=== PATIENT | female | born 1970 | race Caucasian/White ===

== ENCOUNTER → 2020-10-08 13:14 | Outpatient (BNVA) | payer OTHER, SELFPAY | PROVIDERS: Family Provider Family Medicine; PCP Family Medicine; Visit Provider Nurse Practitioner Family | DX: Z20.828 Contact with and (suspected) exposure to other viral communicable diseases (principal) | CPT/HCPCS: 87635 ==

== ENCOUNTER → 2020-10-25 13:45 | Outpatient (BNVA) | payer OTHER, SELFPAY | PROVIDERS: Family Provider Family Medicine; PCP Family Medicine; Visit Provider Nurse Practitioner Family | DX: J06.9 Acute upper respiratory infection, unspecified (principal) | CPT/HCPCS: 87635 ==

== ENCOUNTER 2021-04-15 01:15 | Emergency (ER) | payer OTHER, SELFPAY ==
[2021-04-15 01:54] VITALS: BP 124/83; PULSE 77; RESP 18; TEMP 36.7; O2SAT 96; BMI 20.1
--- NOTE | 2021-04-15 02:58 | CTR_ITS ---
PROCEDURE INFORMATION: Exam: CT Angiography Head With Contrast, Arteriography Exam date and time: 04/15/2021 2:58 AM Age: 50 years old Clinical indication: Pain; Headache; Additional info: Severe neck pain/arrington TECHNIQUE: Imaging protocol: Computed tomography angiography of the head with contrast. Exam focused on the arteries. 3D rendering (Not supervised by radiologist): MIP and/or 3D reconstructed images were created by the technologist. Radiation optimization: All CT scans at this facility use at least one of these dose optimization techniques: automated exposure control; mA and/or kV adjustment per patient size (includes targeted exams where dose is matched to clinical indication); or iterative reconstruction. Contrast material: OMNI 350; Contrast volume: 95 ml; Contrast route: INTRAVENOUS (IV); COMPARISON: No relevant prior studies available. RADIATION DOSE METRICS: Total DLP (mGy-cm): 1714.05 FINDINGS: ANTERIOR CIRCULATION: Right internal carotid artery: Unremarkable. Intracranial segment is patent with no significant stenosis. No aneurysm. Right middle cerebral artery: Unremarkable. No occlusion or significant stenosis. No aneurysm. Right anterior cerebral artery: Unremarkable. No occlusion or significant stenosis. No aneurysm. Left internal carotid artery: Unremarkable. Intracranial segment is patent with no significant stenosis. No aneurysm. Left middle cerebral artery: Unremarkable. No occlusion or significant stenosis. No aneurysm. Left anterior cerebral artery: Unremarkable. No occlusion or significant stenosis. No aneurysm. POSTERIOR CIRCULATION: Right vertebral artery: Unremarkable. No occlusion or significant stenosis. No aneurysm. Left vertebral artery: Unremarkable. No occlusion or significant stenosis. No aneurysm. Basilar artery: Unremarkable. No occlusion or significant stenosis. No aneurysm. Right posterior cerebral artery: Unremarkable. No occlusion or significant stenosis. No aneurysm. Left posterior cerebral artery: Unremarkable. No occlusion or significant stenosis. No aneurysm. Brain: No definite mass, mass effect, or midline shift. Cerebral ventricles: No ventriculomegaly. Bones/joints: Unremarkable. No acute fracture. Soft tissues: Unremarkable. IMPRESSION: No large vessel stenosis or occlusion. PROCEDURE INFORMATION: Exam: CT Angiography Neck With Contrast Exam date and time: 04/15/2021 2:58 AM Age: 50 years old Clinical indication: Pain; Headache; Additional info: Severe neck pain/arrington TECHNIQUE: Imaging protocol: Computed tomography angiography of the neck with contrast. 3D rendering (Not supervised by radiologist): MIP and/or 3D reconstructed images were created by the technologist. Radiation optimization: All CT scans at this facility use at least one of these dose optimization techniques: automated exposure control; mA and/or kV adjustment per patient size (includes targeted exams where dose is matched to clinical indication); or iterative reconstruction. Contrast material: OMNI 350; Contrast volume: 95 ml; Contrast route: INTRAVENOUS (IV); COMPARISON: No relevant prior studies available. RADIATION DOSE METRICS: Total DLP (mGy-cm): 1714.05 FINDINGS: Right common carotid artery: No stenosis. No dissection or occlusion. Right internal carotid artery: No stenosis of the extracranial segment. No dissection or occlusion. Right external carotid artery: No occlusion or stenosis of the origin. Left common carotid artery: No stenosis. No dissection or occlusion. Left internal carotid artery: No stenosis of the extracranial segment. No dissection or occlusion. Left external carotid artery: No occlusion or stenosis of the origin. Right vertebral artery: No stenosis. No dissection or occlusion. Left vertebral artery: No stenosis. No dissection or occlusion. Soft tissues: Normal. No significant soft tissue swelling. Bones/joints: No acute fracture. CT/CT angio headneck* [id number] IMPRESSION: No stenosis or occlusion. REFERENCES: NASCET CRITERIA. The degree of internal carotid artery stenosis is based on NASCET criteria. Normal is no stenosis. Mild is less than 50% stenosis. Moderate is 50-69% stenosis. Severe is 70% to 99% stenosis. Total occlusion is no detectable patent lumen. Radiation Dose CTDIVOL = (mGy): DLP = 1714.05~1714.05 (mGy-cm)
--- NOTE | 2021-04-15 02:59 | W.ED.NECK ---
Documented by User: ADRIANA David 04/16/21 07:09 HPI - Neck Pain/Injury General: Chief Complaint: Neck Pain/Injury Stated Complaint: Spine hurt\Headache Time Seen by Provider: 04/15/21 02:28 Source: patient Mode of arrival: ambulatory Limitations: no limitations History of Present Illness: HPI Narrative: Patient is a 50-year-old female who presents to ED today with a complaint of headache and neck pain. Patient tells me earlier today she was cleaning and states she rotated her head/neck to the right and immediately felt a warm sensation to her neck and traveling up into her head. She then tells me she began developing a severe headache. Patient does have a history of migraines but states her headache did not feel like anything she has ever experienced before. She describes the sensation like a vice microstrategy reports developer to the posterior aspect of her scalp. She tells me she has 10/10 pain with coughing, sneezing, or bending over. MD complaint: neck pain and other (headache) Onset (ago): hour(s) Place: home Severity: severe Quality: burning Duration: constant Relieving factors: immobilization Exacerbating factors: movement of neck Context: turning/bending Associated symptoms: Reports headache(s); Denies difficulty walking, dizziness or nausea Treatments prior to arrival: none Review of Systems Const: Denies: fever(s), chills, body aches, fatigue or malaise Eyes: Denies: change in vision, blurry vision, photophobia, floaters or seeing flashes ENMT: Denies: throat pain or odynophagia Card: Denies: chest pain Resp: Denies: dyspnea GI: Denies: nausea or vomiting Musc: Reports: neck pain; Denies: back pain, extremity pain, extremity swelling, joint pain, joint swelling, joint redness or joint stiffness Skin/Breast: Denies: rash Neuro: Reports: headache(s); Denies: numbness in extremities, weakness in extremities, sensory changes, lack of coordination, difficulty walking, dizziness, vertigo, confusion, Slurred speech present, difficulty communicating thoughts or seizure-like activity [facility] ED PFSH: Social History Smoking and tobacco status: current every day smoker cigarettes Packs smoked per day: 0.5 Alcohol intake: never Physical Exam Const: COMMON NORMALS: no acute distress, average body habitus, patient oriented x3, no limitations, healthy appearing, alert and well nourished GENERAL APPEARANCE: cooperative HENMT: COMMON NORMALS: normocephalic and atraumatic HEAD & SCALP: normal to inspection, normocephalic and atraumatic FACE & SINUS: normal facial exam and sinuses nontender Eye: COMMON NORMALS: Equal, round and reactive pupils present and EOMs intact bilaterally PUPIL: Yes Equal, round and reactive pupils present Neck/C-Spine: COMMON NORMALS: no lymphadenopathy and no meningeal signs CERVICAL SPINE: No Cervical spine tenderness, No step off deformity, Yes Paracervical muscle tenderness (slightly but not as much as history would suggest ) bilateral and Yes Trapezius muscle tenderness Chest: COMMONS NORMALS: normal inspection of the chest and normal palpation of entire chest wall Neuro: NINO COMA SCALE: document GCS findings Nino coma scale eye opening: Spontaneous Nino coma scale verbal response: Orientated [place] coma scale motor response: Obey commands Nino coma scale total score: 15 COMMON NORMALS: patient oriented x3 SENSORIUM/ORIENTATION: Yes alert MENINGEAL SIGNS: Yes no meningeal signs Skin: COMMON NORMALS: no rashes or lesions noted GENERAL SKIN EXAM: no rashes or lesions noted Course Vital Signs: Vital signs: Vital Signs Temperature 98.0 F 04/15/21 01:54 Pulse Rate 86 04/15/21 06:39 Respiratory Rate 16 04/15/21 06:39 Blood Pressure 124/68 04/15/21 06:39 Pulse Oximetry 98 04/15/21 06:39 MDM - Neck Pain/Injury MDM Narrative: Medical decision making narrative: Case was discussed with Dr. Saavedra as patient's HPI was suspicious for a possible vertebral artery dissection and did not sound like a straightforward neck strain. On physical exam patient did have some minor musculoskeletal pain that was reproducible however did not seem as tender as I would have expected based on her complaint. We agreed that CTA imaging should be obtained. Care will be transferred to him at shift change. Lab Data: Labs: Lab Results 04/15/21 04/15/21 Range/Units 03:53 03:53 WBC 10.4 H (4.0-10.0) 10^3/ uL RBC 4.23 (4.1-5.3) 10^6/u L Hgb 13.3 (11.5-15.3) g/dL Hct 40.1 (37.0-47.0) % MCV 94.8 (81-99) fL MCH 31.4 (28.0-34.0) pg MCHC 33.2 (30.0-36.0) g/dL RDW 13.1 (12.1-15.1) % Plt Count 258 (130-400) 10^3/c mm MPV 11.8 H (7.4-10.4) fL Neut % (Auto) 58.8 % Lymph % (Auto) 29.3 % Crockett % (Auto) 8.3 % Eos % (Auto) 2.8 % Baso % (Auto) 0.4 % Neut # (Auto) 6.14 (1.8-7.7) 10^3/u L Lymph # (Auto) 3.1 (0.8-4.8) 10^3/u L Crockett # (Auto) 0.9 (0.2-0.9) 10^3/u L Eos # (Auto) 0.3 (0.0-0.8) 10^3/u L Baso # (Auto) 0.0 (0.0-0.1) 10^3/u L Nucleated RBC % (a uto) 0 % Nucleated RBCs # 0.0 /100WBC Sodium 141 (136-145) mmol/L Potassium 3.9 (3.5-5.1) mmol/L Chloride 107 (98-107) mmol/L Carbon Dioxide 28 (22-29) mmol/L Anion Gap 9.9 (5-19) BUN 9 (6-20) mg/dL Creatinine 0.6 (0.5-0.9) mg/dL GFR Calculation 105.4 (90-130) mL/min Glucose 92 (65-115) mg/dL Calculated Osmolal ity 290 (285-295) mOsm/k g Calcium 8.8 (8.5-10.5) mg/dL Total Bilirubin 0.3 (0.15-1.2) mg/dL AST 14 (0-32) U/L ALT 10 (0-33) U/L Alkaline Phosphata se 84 (35-105) IU/L Total Protein 6.0 L (6.6-8.7) g/dL Albumin 3.6 (3.5-5.2) g/dL Globulin 2.4 (1.3-4.6) g/dL Discharge Plan Discharge Patient Disposition: Home Clinical Impression: Strain of neck muscle Qualifiers: Encounter type: initial encounter Qualified Code(s): S16.1XXA - Strain of muscle, fascia and tendon at neck level, initial encounter Headache Qualifiers: Headache type: unspecified Headache chronicity pattern: acute headache Intractability: not intractable Qualified Code(s): R51.9 - Headache, unspecified Condition: Stable Prescriptions: New Robaxin-750 750 mg tablet 750 mg PO TID Qty: 20 RF: 0 ketorolac 10 mg tablet 10 mg PO TID PRN (Reason: pain) Qty: 10 RF: 0 No Action amoxicillin 500 mg capsule 500 mg PO TID 10 Days Qty: 30 RF: 0 Discharge Orders: Discharge ED (Routine); Ordered 04/15/21 Ordered By: Brandyn Saavedra Referrals: Jonn Puentes MD [Primary Care Provider] - 1-3 days Patient Instructions: Headache, Cervical Spine Strain (ED) Activity Restrictions/Additional Instructions: Return for worsening pain despite treatment, mental status changes, weakness, vision problems, speech problems, any other concerning symptoms. Coding Level of Care Code ED First Press Operator for Chg Fwd Documented by User: Brandyn Saavedra DO 04/15/21 09:06 HPI - Neck Pain/Injury General: Chief Complaint: Neck Pain/Injury Stated Complaint: Spine hurt\Headache Time Seen by Provider: 04/15/21 02:28 [facility] ED PFSH: Social History Smoking and tobacco status: current every day smoker cigarettes Packs smoked per day: 0.5 Alcohol intake: never Course Vital Signs: Vital signs: Vital Signs Temperature 98.0 F 04/15/21 01:54 Pulse Rate 86 04/15/21 06:39 Respiratory Rate 16 04/15/21 06:39 Blood Pressure 124/68 06/28/21 06:39 Pulse Oximetry 98 04/15/21 06:39 MDM - Neck Pain/Injury MDM Narrative: Medical decision making narrative: 50-year-old female checked out to be Mrs. Liriano?AURELIANO Vines. This lady has a significant headache with neck pain. She denies significant traumatic injury, although she reported after turning her head, she had an intense pain radiating from her neck to her mid back. Her laboratory is benign. Head CT is negative. CTA of the head and neck was performed due to concern over vertebral artery dissection. This is negative as well. She is feeling better after Norflex injection. She will be allowed home. Lab Data: Labs: Lab Results 04/15/21 04/15/21 Range/Units 03:53 03:53 WBC 10.4 H (4.0-10.0) 10^3/ uL RBC 4.23 (4.1-5.3) 10^6/u L Hgb 13.3 (11.5-15.3) g/dL Hct 40.1 (37.0-47.0) % MCV 94.8 (81-99) fL MCH 31.4 (28.0-34.0) pg MCHC 33.2 (30.0-36.0) g/dL RDW 13.1 (12.1-15.1) % Plt Count 258 (130-400) 10^3/c mm MPV 11.8 H (7.4-10.4) fL Neut % (Auto) 58.8 % Lymph % (Auto) 29.3 % Crockett % (Auto) 8.3 % Eos % (Auto) 2.8 % Baso % (Auto) 0.4 % Neut # (Auto) 6.14 (1.8-7.7) 10^3/u L Lymph # (Auto) 3.1 (0.8-4.8) 10^3/u L Crockett # (Auto) 0.9 (0.2-0.9) 10^3/u L Eos # (Auto) 0.3 (0.0-0.8) 10^3/u L Baso # (Auto) 0.0 (0.0-0.1) 10^3/u L Nucleated RBC % (a uto) 0 % Nucleated RBCs # 0.0 /100WBC Sodium 141 (136-145) mmol/L Potassium 3.9 (3.5-5.1) mmol/L Chloride 107 (98-107) mmol/L Carbon Dioxide 28 (22-29) mmol/L Anion Gap 9.9 (5-19) BUN 9 (6-20) mg/dL Creatinine 0.6 (0.5-0.9) mg/dL GFR Calculation 105.4 (90-130) mL/min Glucose 92 (65-115) mg/dL Calculated Osmolal ity 290 (285-295) mOsm/k g Calcium 8.8 (8.5-10.5) mg/dL Total Bilirubin 0.3 (0.15-1.2) mg/dL AST 14 (0-32) U/L ALT 10 (0-33) U/L Alkaline Phosphata se 84 (35-105) IU/L Total Protein 6.0 L (6.6-8.7) g/dL Albumin 3.6 (3.5-5.2) g/dL Globulin 2.4 (1.3-4.6) g/dL Discharge Plan Discharge Patient Disposition: Home Clinical Impression: Strain of neck muscle Qualifiers: Encounter type: initial encounter Qualified Code(s): S16.1XXA - Strain of muscle, fascia and tendon at neck level, initial encounter Headache Qualifiers: Headache type: unspecified Headache chronicity pattern: acute headache Intractability: not intractable Qualified Code(s): R51.9 - Headache, unspecified Condition: Stable Prescriptions: New Robaxin-750 750 mg tablet 750 mg PO TID Qty: 20 RF: 0 ketorolac 10 mg tablet 10 mg PO TID PRN (Reason: pain) Qty: 10 RF: 0 No Action amoxicillin 500 mg capsule 500 mg PO TID 10 Days Qty: 30 RF: 0 Discharge Orders: Discharge ED (Routine); Ordered 04/15/21 Ordered By: Brandyn Saavedra Referrals: Jonn Puentes MD [Primary Care Provider] - 1-3 days Patient Instructions: Headache, Cervical Spine Strain (ED) Activity Restrictions/Additional Instructions: Return for worsening pain despite treatment, mental status changes, weakness, vision problems, speech problems, any other concerning symptoms. Coding Level of Care Code ED First Press Operator for Chg Brina
[2021-04-15 03:49] VITALS: BP 118/72; PULSE 104; RESP 18; O2SAT 96
[2021-04-15] MEDS: orphenadrine 30 mg/mL Inj 2 mL 60 MG IVP (03:50)
[2021-04-15 03:59] LABS: Basophils % 0.4 %; Eosinophils # 0.3 10^3/uL (0.0-0.8); Eosinophils % 2.8 %; Hematocrit 40.1 % (37.0-47.0); Hemoglobin 13.3 g/dL (11.5-15.3); Lymphocytes # 3.1 10^3/uL (0.8-4.8); Lymphocytes % 29.3 %; Mean Corpuscular HGB Conc 33.2 g/dL (30.0-36.0); Mean Corpuscular Hemoglobin 31.4 pg (28.0-34.0); Mean Corpuscular Volume 94.8 fL (81-99); Mean Platelet Volume 11.8 fL (7.4-10.4); Monocytes # 0.9 10^3/uL (0.2-0.9); Monocytes % 8.3 %; Neutrophils # 6.14 10^3/uL (1.8-7.7); Neutrophils % 58.8 %; Nucleated Red Blood Cells % 0 %; Platelet Count 258 10^3/cmm (130-400); Red Blood Count 4.23 10^6/uL (4.1-5.3); Red Cell Distribution Width 13.1 % (12.1-15.1); White Blood Count 10.4 10^3/uL (4.0-10.0)
[2021-04-15 04:24] LABS: Alanine Aminotransferase 10 U/L (0-33); Albumin Level 3.6 g/dL (3.5-5.2); Alkaline Phosphatase 84 IU/L (35-105); Anion Gap 9.9 (5-19); Aspartate Amino Transferase 14 U/L (0-32); Blood Urea Nitrogen 9 mg/dL (6-20); Calcium 8.8 mg/dL (8.5-10.5); Carbon Dioxide 28 mmol/L (22-29); Chloride 107 mmol/L (98-107); Globulin 2.4 g/dL (1.3-4.6); Glomerular Filtration Rate 105.4 mL/min (90-130); Glucose 92 mg/dL (65-115); Osmolality Calculated 290 mOsm/kg (285-295); Potassium 3.9 mmol/L (3.5-5.1); Sodium 141 mmol/L (136-145); Total Bilirubin 0.3 mg/dL (0.15-1.2)
[2021-04-15] MEDS: ondansetron 2 mg/ML SDV 2 mL 4 MG IVP (04:27)
[2021-04-15] MEDS: iohexol 350 mg/mL 100 mL Btl IV (04:41)
[2021-04-15 05:16] VITALS: BP 124/64; PULSE 78; RESP 16; O2SAT 98
[2021-04-15 06:39] VITALS: BP 124/68; PULSE 86; RESP 16; O2SAT 98
== END 2021-04-15 06:40 | disposition home or self-care (01) ==
PROVIDERS: Emergency Provider Physician Assistant; PCP Family Medicine
DX: R51.9 Headache, unspecified (principal); S16.1XXA Strain of muscle, fascia and tendon at neck level, initial encounter; F17.210 Nicotine dependence, cigarettes, uncomplicated; X58.XXXA Exposure to other specified factors, initial encounter
CPT/HCPCS: 70496; 70498; 80053; 85025; 96374; 96375; 99284; J2360; J2405; Q9967

== ENCOUNTER → 2021-04-19 09:32 | Outpatient (BNVA) | payer OTHER, SELFPAY | PROVIDERS: PCP Family Medicine; Visit Provider Nurse Practitioner Family | DX: R05 Cough (principal); S16.1XXA Strain of muscle, fascia and tendon at neck level, initial encounter; X58.XXXA Exposure to other specified factors, initial encounter | CPT/HCPCS: 71046 ==

== ENCOUNTER 2021-05-30 15:21 | Emergency (ER) | payer OTHER, SELFPAY ==
--- NOTE | 2021-05-30 15:37 | XR_ITS ---
WS: [id number] Left foot, 3 views, 05/30/2021 Clinical Data: pain Comparison: None. Findings: No fractures or dislocations are seen. No bone destruction or erosion is noted. The joint spaces and soft tissues are normal. XR/XR foot LT min 3V* [id number] Impression: Negative left foot.
[2021-05-30 15:51] VITALS: BP 157/82; PULSE 109; RESP 18; TEMP 36.4; O2SAT 96; BMI 21.4
--- NOTE | 2021-05-30 16:19 | ED_ITS ---
HPI - Extremity Problem General: Chief complaint: Extremity Injury, Lower Stated complaint: L foot pain Time Seen by Provider: 05/30/21 16:08 History of Present Illness: HPI Narrative: A lid come off a large container striking her in her left foot at work today. This is a work comp injury. Patient able to ambulate without difficulty does have swelling to the left foot. Complaint: extremity pain Onset (ago): hour(s) Pain Consistency: now resolved Location: left and lower extremity Severity scale (1-10): 1 Exacerbating factors: nothing Associated symptoms: Reports no associated symptoms; Deny fever(s) Review of Systems Const: Denies: fever(s) or chills Musc: Reports: extremity swelling (Has contusion to top of left foot with an abrasion where the lid fell on to) Psych: Denies: anxiety or depression PFS ED PFSH: Medical History History of breast cancer No pertinent past medical history Social History Smoking and tobacco status: current every day smoker cigarettes Packs smoked per day: 0.5 Years cigarettes smoked: 20 Second hand smoke exposure: Yes Alcohol intake: never Lives independently: Yes Current occupational status: employed Current occupation: [employer] History of recent travel: No Current gender identity: Female Physical Exam Const: COMMON NORMALS: no acute distress GENERAL APPEARANCE: cooperative Resp: COMMON NORMALS: normal respiratory effort Extremity: LEFT LOWER EXTREMITY: Yes foot & digits OTHER: Hematoma left midfoot dorsal surface with mild abrasion has full range of motion able to bear weight without difficulty no tenderness. Psych: COMMON NORMALS: mental status grossly normal Skin: OTHER: Abrasion top of left foot midfoot area Course Vital Signs: Vital signs: Vital Signs Temperature 97.6 F 05/30/21 15:51 Pulse Rate 109 H 05/30/21 15:51 Respiratory Rate 18 05/30/21 15:51 Blood Pressure 157/82 05/30/21 15:51 Pulse Oximetry 96 05/30/21 15:51 Discharge Plan Discharge Prescriptions: No Action albuterol sulfate [ProAir HFA] 90 mcg/actuation HFA aerosol inhaler 2 puff inhalation Q6H PRN (Reason: shortness of breath or wheezing) Qty: 8.5 RF: 0 Chantix Starting Month Box 0.5 mg (11)- 1 mg (42) tablets,dose pack See Rx Instructions PO PER PKG DIR Qty: 53 RF: 0 Robaxin-750 750 mg tablet 750 mg PO TID Qty: 20 RF: 0 ketorolac 10 mg tablet 10 mg PO TID PRN (Reason: pain) Qty: 10 RF: 0 Coding Level of Care Code ED Guide Dog Mobility Instructor for Chg Brina
[2021-05-30 16:38] VITALS: BP 123/75; PULSE 74; RESP 18; TEMP 36.4; O2SAT 96
== END 2021-05-30 16:30 | disposition home or self-care (01) ==
PROVIDERS: Emergency Provider Nurse Practitioner Family
DX: S90.32XA Contusion of left foot, initial encounter (principal); F17.210 Nicotine dependence, cigarettes, uncomplicated; W22.8XXA Striking against or struck by other objects, initial encounter
CPT/HCPCS: 73630; 99282

== ENCOUNTER → 2021-09-27 13:14 | Outpatient (BNVA) | payer OTHER, SELFPAY | PROVIDERS: Visit Provider Nurse Practitioner Family | DX: M54.42 Lumbago with sciatica, left side (principal); M54.41 Lumbago with sciatica, right side; Z13.820 Encounter for screening for osteoporosis; G43.909 Migraine, unspecified, not intractable, without status migrainosus; R11.0 Nausea; Z12.31 Encounter for screening mammogram for malignant neoplasm of breast; F41.9 Anxiety disorder, unspecified; M19.90 Unspecified osteoarthritis, unspecified site; R53.83 Other fatigue; Z78.0 Asymptomatic menopausal state; F32.A Depression, unspecified | CPT/HCPCS: 80053; 80061; 82306; 82607; 82746 ==

== ENCOUNTER 2022-07-29 14:10 | Emergency (ER) | payer OTHER, SELFPAY ==
--- NOTE | 2022-07-29 14:14 | XRR_ITS ---
PROCEDURE INFORMATION: Exam: XR Chest Exam date and time: 07/29/2022 4:26 PM Age: 51 years old Clinical indication: Pain; Angina pectoris; Additional info: Chest pain TECHNIQUE: Imaging protocol: Radiologic exam of the chest. Views: 1 view. COMPARISON: CR XR chest 2V* [id number] 04/19/2021 9:38 AM FINDINGS: Lungs: Unremarkable. No consolidation. Pleural spaces: Unremarkable. No pleural effusion. No pneumothorax. Heart/Mediastinum: Unremarkable. No cardiomegaly. Bones/joints: Unremarkable. XR/XR chest 1V portable [id number] IMPRESSION: No acute findings.
[2022-07-29 14:22] VITALS: BP 135/91; PULSE 77; RESP 18; TEMP 36.6; O2SAT 95; BMI 19.8
[2022-07-29 14:26] LABS: Basophils % 0.4 %; Eosinophils # 0.1 10^3/uL (0.0-0.8); Hematocrit 45.9 % (37.0-47.0); Hemoglobin 15.6 g/dL (11.5-15.3); Lymphocytes # 2.9 10^3/uL (0.8-4.8); Lymphocytes % 30.4 %; Mean Corpuscular Hemoglobin 32.8 pg (28.0-34.0); Mean Corpuscular Volume 96.4 fl (81-99); Mean Platelet Volume 11.4 fL (7.4-10.4); Monocytes # 0.7 10^3/uL (0.2-0.9); Monocytes % 6.9 %; Neutrophils # 5.73 10^3/uL (1.8-7.7); Nucleated Red Blood Cells % 0 %; Platelet Count 280 10^3/cmm (130-400); Red Blood Count 4.76 10^6/uL (4.1-5.3); Red Cell Distribution Width 13.2 % (12.1-15.1); White Blood Count 9.4 10^3/uL (4.0-10.0)
--- NOTE | 2022-07-29 14:35 | ECG_ITS ---
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 Measurements Intervals [place] Rate: 78 P: 82 MS: 163 QRS: 98 QRSD: 89 T: 76 QT: 377 QTc: 429 Interpretive Statements SINUS RHYTHM BORDERLINE RIGHT AXIS DEVIATION [QRS AXIS > 90] No previous ECG available for comparison Electronically Signed On 07-30-2022 8:25:54 CDT by Wilson Bradshaw M.D. [id number]
[2022-07-29 14:51] LABS: Alanine Aminotransferase 13 U/L (0-33); Albumin Level 4.2 g/dL (3.5-5.2); Alkaline Phosphatase 97 U/L (35-105); Anion Gap 14.5 (5-19); Aspartate Amino Transferase 16 U/L (0-32); Blood Urea Nitrogen 11 mg/dL (6-20); Calcium 9.5 mg/dL (8.5-10.5); Carbon Dioxide 28 mmol/L (22-29); Chloride 101 mmol/L (98-107); Globulin 2.6 g/dL (1.3-4.6); Glomerular Filtration Rate 65.8 mL/min (90-130); Glucose 87 mg/dL (65-115); Osmolality Calculated 287 mOsm/kg (285-295); Potassium 4.5 mmol/L (3.5-5.1); Sodium 139 mmol/L (136-145); Total Bilirubin 0.2 mg/dL (0.15-1.2); Total Protein 6.8 g/dL (6.6-8.7)
[2022-07-29 14:54] LABS: Troponin(5th) Baseline 6 ng/L (0-10)
--- NOTE | 2022-07-29 16:14 | ECG_ITS ---
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 Measurements Intervals [place] Rate: 54 P: 86 [place]: 174 QRS: 88 QRSD: 90 T: 78 QT: 423 QTc: 403 Interpretive Statements SINUS BRADYCARDIA WITH SINUS ARRHYTHMIA Compared to ECG 07/29/2022 14:35:30 Sinus rhythm no longer present Electronically Signed On 07-30-2022 8:22:48 CDT by Wilson Bradshaw M.D. [id number]
[2022-07-29 16:44] VITALS: BP 150/84; PULSE 60; O2SAT 99
[2022-07-29 17:00] VITALS: BP 136/88; PULSE 59; O2SAT 98
--- NOTE | 2022-07-29 17:26 | W.ED.CHESTPA ---
HPI - Chest Pain General: Chief Complaint: Chest Pain Stated Complaint: Chest Pain Time Seen by Provider: 07/29/22 16:40 Source: patient Mode of arrival: ambulatory History of Present Illness: 51-year-old female presents emergency room with complaint of chest pains been ongoing for months. She not noticed anything that exacerbates or relieves it. No associated shortness of breath no radiation of pain nothing that exacerbates or relieves the pain no known history of coronary artery disease patient is a smoker nondiabetic. She previously had episodes of chest pain was evaluated and no significant finding was made. MD complaint: chest pain Onset (ago): week(s) Timing of current episode: episodic Prior episodes: Yes Onset: during rest and during exertion Pain location: left chest Pain radiation: none Severity: mild Quality: heaviness Relieving factors: nothing Exacerbating factors: nothing Associated symptoms: Deny abdominal pain, diaphoresis, dyspnea, fever(s), leg edema, nausea, palpitations, sense of impending doom, syncope or vomiting Treatment prior to arrival: none Review of Systems Const: Denies: fever(s), chills, body aches or diaphoresis ENMT: Denies: throat pain, ear or mastoid pain, nasal discharge or nasal congestion Card: Reports: chest pain; Denies: palpitations, irregular heart rhythm, edema or syncope Resp: Denies: dyspnea, productive cough or non-productive cough GI: Denies: abdominal pain, nausea or vomiting : Denies: flank pain, difficulty voiding, dysuria, urinary frequency or urinary urgency Skin/Breast: Denies: rash or pruritus PFSH ED PFSH: Medical History History of breast cancer No pertinent past medical history Social History Smoking and tobacco status: never smoked Second hand smoke exposure: Yes Alcohol intake: never Lives independently: Yes Current occupational status: employed Current occupation: [employer] History of recent travel: No Current gender identity: Female Physical Exam Const: GENERAL APPEARANCE: cooperative and comfortable ORIENTATION/CONSCIOUSNESS: Yes awake, Yes oriented to person, Yes oriented to place and Yes oriented to time HENMT: COMMON NORMALS: normocephalic, atraumatic and hearing grossly normal bilaterally HEAD & SCALP: normocephalic and atraumatic Resp: COMMON NORMALS: normal respiratory effort, No retractions, No use of accessory muscles and clear to auscultation bilaterally AUSCULTATION: clear to auscultation bilaterally Cardio: COMMON NORMALS: regular rate, regular rhythm and No murmurs present (Cardio) RATE: regular rate RHYTHM: regular rhythm GI: COMMON NORMALS: Soft to palpation and No hepatosplenomegaly present AUSCULTATION: Yes normoactive bowel sounds PALPATION: Yes Soft to palpation, No Tenderness to palpation present (GI), No Guarding due to palpation present (GI) and Yes No hepatosplenomegaly present Extremity: COMMON NORMALS: normal to inspection, capillary refill normal, no clubbing, cyanosis or edema, no calf tenderness and no pedal edema Neuro: SENSORIUM/ORIENTATION: Yes oriented to person, Yes oriented to place and Yes oriented to time Skin: COMMON NORMALS: no rashes or lesions noted GENERAL SKIN EXAM: no rashes or lesions noted Course Vital Signs: Vital signs: Vital Signs Temperature 97.9 F 07/29/22 14: Pulse Rate 66 07/29/22 17:30 Respiratory Rate 18 07/29/22 14:22 Blood Pressure 132/80 07/29/22 17:30 Pulse Oximetry 97 07/29/22 17:30 Oxygen Delivery Me thod 07/29/22 17:30 MDM - Chest Pain Medical Decision Making Labs imaging and EKG reviewed as found in the chart. EKG does not show anything acute. Cardiac enzymes negative. We will discharge patient home. Set up for outpatient Lexiscan sestamibi stress test return if is further problems. Medical Records I reviewed the patient's medical records. Lab Data I reviewed the patient's lab results. : 07/29/22 14:20 07/29/22 14:20 Radiology Impressions Chest X-Ray 07/29/22 14:14 IMPRESSION: No acute findings. Laboratory Results WBC 9.4 10^3/uL (4.0-10.0) 07/29/22 14:20 RBC 4.76 10^6/uL (4.1-5.3) 07/29/22 14:20 Hgb 15.6 g/dL (11.5-15.3) H 07/29/22 14:20 Hct 45.9 % (37.0-47.0) 07/29/22 14:20 MCV 96.4 fl (81-99) 07/29/22 14:20 MCH 32.8 pg (28.0-34.0) 07/29/22 14:20 MCHC 34.0 g/dL (30.0-36.0) 07/29/22 14:20 RDW 13.2 % (12.1-15.1) 07/29/22 14:20 Plt Count 280 10^3/cmm (130-400) 07/29/22 14:20 MPV 11.4 fL (7.4-10.4) H 07/29/22 14:20 Neut % (Auto) 61.0 % 07/29/22 14:20 Lymph % (Auto) 30.4 % 07/29/22 14:20 [place] % (Auto) 6.9 % 07/29/22 14:20 Eos % (Auto) 1.0 % 07/29/22 14:20 Baso % (Auto) 0.4 % 07/29/22 14:20 Neut # (Auto) 5.73 10^3/uL (1.8-7.7) 07/29/22 14:20 Lymph # (Auto) 2.9 10^3/uL (0.8-4.8) 07/29/22 14:20 [place] # (Auto) 0.7 10^3/uL (0.2-0.9) 07/29/22 14:20 Eos # (Auto) 0.1 10^3/uL (0.0-0.8) 07/29/22 14:20 Baso # (Auto) 0.0 10^3/uL (0.0-0.1) 07/29/22 14:20 Nucleated RBC % (auto) 0 % 07/29/22 14:20 Nucleated RBCs # 0.0 /100WBC 07/29/22 14:20 Sodium 139 mmol/L (136-145) 07/29/22 14:20 Potassium 4.5 mmol/L (3.5-5.1) 07/29/22 14:20 Chloride 101 mmol/L (98-107) 07/29/22 14:20 Carbon Dioxide 28 mmol/L (22-29) 07/29/22 14:20 Anion Gap 14.5 (5-19) 07/29/22 14:20 BUN 11 mg/dL (6-20) 07/29/22 14:20 Creatinine 0.9 mg/dL (0.5-0.9) 07/29/22 14:20 GFR Calculation 65.8 mL/min (90-130) L 07/29/22 14:20 Glucose 87 mg/dL (65-115) 07/29/22 14:20 Calculated Osmolality 287 mOsm/kg (285-295) 07/29/22 14:20 Calcium 9.5 mg/dL (8.5-10.5) 07/29/22 14:20 Total Bilirubin 0.2 mg/dL (0.15-1.2) 07/29/22 14:20 AST 16 U/L (0-32) 07/29/22 14:20 ALT 13 U/L (0-33) 07/29/22 14:20 Alkaline Phosphatase 97 U/L (35-105) 07/29/22 14:20 Troponin T Baseline 6 ng/L (0-10) 07/29/22 14:20 Troponin T 120 Minute 6.00 ng/L (0-10) 07/29/22 16:27 Delta Troponin T 0 ABS# (0-10) 07/29/22 16:27 Total Protein 6.8 g/dL (6.6-8.7) 07/29/22 14:20 Albumin 4.2 g/dL (3.5-5.2) 07/29/22 14:20 Globulin 2.6 g/dL (1.3-4.6) 07/29/22 14:20 Discharge Plan Discharge Patient Disposition: Home Clinical Impression: Atypical chest pain Condition: Stable Prescriptions: No Action Ubrelvy 100 mg tablet 100 mg PO .COMPLEX MDD 200 mg 24 hours Qty: 30 6RF Rx Instructions: 100 mg PO max 200 mg 24 hours; ondansetron HCl [Zofran] 4 mg tablet 4 mg PO Q8H PRN (Reason: nausea and vomiting) Qty: 30 0RF meloxicam 15 mg tablet 15 mg PO DAILY 90 Days Qty: 90 1RF albuterol sulfate [ProAir HFA] 90 mcg/actuation HFA aerosol inhaler 2 puff inhalation Q6H PRN (Reason: shortness of breath or wheezing) Qty: 8.5 0RF nitrofurantoin monohyd/m-cryst [Macrobid] 100 mg capsule 100 mg PO Q12H 10 Days Qty: 20 0RF Rx Instructions: must administer with a meal/food phenazopyridine [Pyridium] 200 mg tablet 200 mg PO TID PRN (Reason: pain) Qty: 6 1RF cholecalciferol (vitamin D3) 50 mcg (2,000 unit) capsule 50 mcg PO DAILY 90 Days Qty: 90 0RF Discharge Orders: Discharge ED (Routine); Ordered 07/29/22 Ordered By: Shai Drake Discharge Diet: Usual diet Discharge Activity: Increase activity as tolerated Patient Instructions: Opioid Safety, Pain Management Activity Restrictions/Additional Instructions: Case management will contact you to arrange for a stress test. 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
[2022-07-29 17:30] VITALS: BP 132/80; PULSE 66; O2SAT 97
[2022-07-29 18:19] LABS: Troponin 5 2HR Delta 0 ABS# (0-10)
--- NOTE | 2022-07-31 14:27 | DCPLANNER ---
manager immunology had message to schedule an outpatient stress test for patient. manager immunology called patient at phone number [phone] to confirm that patient wanted the stress test ordered and to confirm who patient sees for primary care. manager immunology unable to speak with patient at this time, call was rejected.
== END 2022-07-29 18:01 | disposition home or self-care (01) ==
PROVIDERS: Emergency Provider Family Medicine
DX: R07.89 Other chest pain (principal); Z77.22 Contact with and (suspected) exposure to environmental tobacco smoke (acute) (chronic); Z85.3 Personal history of malignant neoplasm of breast
CPT/HCPCS: 36415; 71045; 80053; 84484; 85025; 93005; 99285

== ENCOUNTER → 2022-08-28 14:55 | Outpatient (BNVA) | payer OTHER, SELFPAY | PROVIDERS: Visit Provider Nurse Practitioner Family | DX: R50.9 Fever, unspecified (principal); J32.9 Chronic sinusitis, unspecified | CPT/HCPCS: 87400; 87426 ==

== ENCOUNTER → 2022-09-15 15:53 | Outpatient (BNVA) | payer OTHER, SELFPAY | PROVIDERS: Visit Provider Nurse Practitioner Family | DX: G43.909 Migraine, unspecified, not intractable, without status migrainosus (principal); R06.02 Shortness of breath; E55.9 Vitamin D deficiency, unspecified; M25.50 Pain in unspecified joint | CPT/HCPCS: 71046; 80053; 80061; 82306; 82607; 83735; 84439; 84443; 84550; 85025; 85651; 86038; 86140; 86200; 86431 ==

== ENCOUNTER → 2022-12-26 13:43 | Outpatient (BNVA) | payer OTHER, SELFPAY | PROVIDERS: Visit Provider Nurse Practitioner Family | DX: R30.0 Dysuria (principal); N39.0 Urinary tract infection, site not specified; N32.89 Other specified disorders of bladder; Z11.3 Encounter for screening for infections with a predominantly sexual mode of transmission; N39.3 Stress incontinence (female) (male); F32.A Depression, unspecified | CPT/HCPCS: 81000 ==

== ENCOUNTER 2023-06-01 15:22 | Outpatient (CLI) | payer OTHER, SELFPAY ==
--- NOTE | 2023-06-01 15:35 | XR_ITS ---
WS: [id number] LEFT HAND: 3 VIEW(S) TECHNIQUE: PA, oblique and lateral. HISTORY: M79.642 - Pain in left hand COMPARISON: None available. Portion of the hand are being obscured by the patient's jewelry. Narrowing of the interphalangeal joint spaces. No fracture. IMPRESSION: Mild osteoarthritis.
== END 2023-06-01 15:23 | disposition home or self-care (01) ==
PROVIDERS: Visit Provider Nurse Practitioner Family
DX: M19.042 Primary osteoarthritis, left hand (principal); E55.9 Vitamin D deficiency, unspecified; R53.83 Other fatigue; Z11.3 Encounter for screening for infections with a predominantly sexual mode of transmission
CPT/HCPCS: 73130; 80053; 80061; 82306; 82607; 83735; 84443; 85025; 86592; 86705; 86706; 86709; 86803; 87340; 87491; 87591; 87661; 87806

== ENCOUNTER 2023-06-08 09:45 | Outpatient (CLI) | payer OTHER, SELFPAY ==
[2023-06-08] MEDS: iohexol 350 mg/mL 500 mL Btl (per mL) PO (10:27)
[2023-06-08] MEDS: iohexol 350 mg/mL 500 mL Btl (per mL) IV (10:55)
--- NOTE | 2023-06-08 11:00 | CTR_ITS ---
PROCEDURE INFORMATION: Exam: CT Chest With Contrast; Diagnostic Exam date and time: 06/08/2023 10:55 AM Age: 52 years old Clinical indication: Nausea and vomiting; Abdominal pain; Localized; Lower; Shortness of breath; Other: SOB; Prior surgery; Surgery date: 6+ months; Surgery type: RT lumpectomy, hyster, tubal, patient HX: HX of breast cancer; Additional info: R53.83 - other fatigue TECHNIQUE: Imaging protocol: Diagnostic computed tomography of the chest with contrast. Radiation optimization: All CT scans at this facility use at least one of these dose optimization techniques: automated exposure control; mA and/or kV adjustment per patient size (includes targeted exams where dose is matched to clinical indication); or iterative reconstruction. Contrast material: OMNI 350; Contrast volume: 100 ml; Contrast route: INTRAVENOUS (IV); REPORTING DATA: Count of CT and Cardiac NM exams in prior 12 months: This patient has received 0 known CTs and 0 known cardiac nuclear medicine studies in the 12 months prior to the current study. COMPARISON: CR XR chest 2V* [id number] 09/15/2022 3:55 PM RADIATION DOSE METRICS: Total DLP (mGy-cm): 449.28 FINDINGS: Lungs: 6 mm indistinct nodular ground-glass opacity left upper lobe, nonspecific. Small calcified granulomas left lung, benign. Minor atelectatic changes right middle lobe and left lung base otherwise lung mahoney are clear. Pleural spaces: Unremarkable. No pneumothorax. No pleural effusion. Heart: Heart is not significantly enlarged. No significant coronary artery calcifications. No significant pericardial effusion. Lymph nodes: 1 cm hilar lymph node along the right tracheobronchial angle likely benign by size criteria. Vasculature: Unremarkable. No aortic aneurysm. Bones/joints: Unremarkable. No acute fracture. Soft tissues: Unremarkable. PROCEDURE INFORMATION: Exam: CT Abdomen And Pelvis With Contrast Exam date and time: 06/08/2023 10:55 AM Age: 52 years old Clinical indication: Nausea and vomiting; Abdominal pain; Localized; Lower; Shortness of breath; Other: SOB; Prior surgery; Surgery date: 6+ months; Surgery type: RT lumpectomy, hyster, tubal, patient HX: HX of breast cancer; Additional info: R53.83 - other fatigue TECHNIQUE: Imaging protocol: Computed tomography of the abdomen and pelvis with contrast. Radiation optimization: All CT scans at this facility use at least one of these dose optimization techniques: automated exposure control; mA and/or kV adjustment per patient size (includes targeted exams where dose is matched to clinical indication); or iterative reconstruction. Contrast material: OMNI 350; Contrast volume: 100 ml; Contrast route: INTRAVENOUS (IV); REPORTING DATA: Count of CT and Cardiac NM exams in prior 12 months: This patient has received 0 known CTs and 0 known cardiac nuclear medicine studies in the 12 months prior to the current study. COMPARISON: CR XR chest 2V* [id number] 09/15/2022 3:55 PM RADIATION DOSE METRICS: Total DLP (mGy-cm): 449.28 FINDINGS: Lungs: Lung bases are clear. Liver: Few small hypodensities within the liver too small to adequately characterize but statistically likely benign. Gallbladder and bile ducts: Normal. No calcified stones. No ductal dilation. Pancreas: Normal. No ductal dilation. Spleen: Normal. No splenomegaly. Adrenal glands: Normal. No mass. Kidneys and ureters: Normal. No hydronephrosis. Stomach and bowel: Mild circumferential thickening involving the distal gastric wall, nonspecific a in may be long-standing or secondary to gastritis. The 3rd 4th portion duodenal sweep as well as a short segment of proximal jejunum appears mildly distended with a thickened small bowel folds that may also be inflammatory in nature. Remainder of the small bowel loops are unremarkable. Appendix: No evidence of appendicitis. Intraperitoneal space: Unremarkable. No free air. No significant fluid collection. Vasculature: Unremarkable. No abdominal aortic aneurysm. Lymph nodes: Unremarkable. No enlarged lymph nodes. Urinary bladder: Unremarkable as visualized. Reproductive: Uterus has been removed. Bones/joints: Prominent sclerotic endplate changes with accompanying osteophytes L2 and L3 vertebral bodies degenerative in nature. There is some adjacent indistinct erosions along the endplates probably degenerative in nature as well. Remainder of visualized osseous structures are unremarkable. Soft tissues: Unremarkable. CT/CT chest abdpel w/*[id number] IMPRESSION: 1. 6 mm nodular ground-glass density left upper lobe, nonspecific. Recommend repeat CT chest in 6 months for continued surveillance. 2. 1 cm right hilar lymph node, probably benign and can also be reassessed on follow-up exam in 6 months. IMPRESSION: 1. Nonspecific findings involving the distal stomach and proximal small bowel that may be secondary to gastroenteritis. Follow-up as clinically indicated. 2. Advanced degenerative disc/endplate changes L2-L3 vertebral.
== END 2023-06-08 09:46 | disposition home or self-care (01) ==
PROVIDERS: PCP Nurse Practitioner Family; Visit Provider Nurse Practitioner Family
DX: R53.83 Other fatigue (principal); R91.8 Other nonspecific abnormal finding of lung field; R63.4 Abnormal weight loss; R11.2 Nausea with vomiting, unspecified; R06.02 Shortness of breath; M51.36 Other intervertebral disc degeneration, lumbar region; Z98.890 Other specified postprocedural states; Z85.3 Personal history of malignant neoplasm of breast; Z90.710 Acquired absence of both cervix and uterus
CPT/HCPCS: 71260; 74177; Q9967

== ENCOUNTER 2023-06-19 13:58 | Outpatient (CLI) | payer OTHER, SELFPAY ==
--- NOTE | 2023-06-19 14:00 | XR_ITS ---
WS: [id number] DEXA (DUAL ENERGY X-RAY ABSORPTIOMETRY) Bone mineral density was performed using a [email or web address] machine. HISTORY: Z78.0 - Asymptomatic menopausal state COMPARISON: None available. Lumbar spine BMD (L1-L4): 1.141 g/cm2 T score: -0.3 Z score: 0.7 Total hip BMD: Left: 0.854 g/cm2. T score: -1.2 Z score: -0.4 Right: 0.819 g/cm2. T score: -1.5 Z score: -0.7 10 year probability of a major osteoporotic fracture is 7.6%. IMPRESSION: OSTEOPENIA based upon the WHO classification for females.
--- NOTE | 2023-06-19 14:06 | MM_ITS ---
WS: [id number] BILATERAL 3D TOMOSYNTHESIS DIGITAL DIAGNOSTIC MAMMOGRAPHY WITH CAD CLINICAL INFORMATION: ANNUAL - HX BR CA HISTORY: History of reported RIGHT breast cancer COMPARISON: 2017. TECHNIQUE: Bilateral CC, MLO, and ML views. FINDINGS: Scattered fibroglandular densities bilaterally. Biopsy clip RIGHT breast. Parenchymal distortion at t he biopsy or lumpectomy site upper outer RIGHT breast unchanged. No suspicious focal mass, asymmetry, calcifications, or architectural distortion. No evidence of timothy gnancy. IMPRESSION: MM/[place] [id number] BI-RADS: 2-Benign FOLLOW UP: 1 Year Follow-up Recommend return to annual diagnostic mammography.
== END 2023-06-19 13:59 | disposition home or self-care (01) ==
LOC: RAD 14:00 → MOBLMAM 14:10 → RAD 14:10
PROVIDERS: PCP Nurse Practitioner Family; Visit Provider Nurse Practitioner Family
DX: Z85.3 Personal history of malignant neoplasm of breast (principal); Z78.0 Asymptomatic menopausal state; M85.80 Other specified disorders of bone density and structure, unspecified site
CPT/HCPCS: 77062; 77080; G0279

== ENCOUNTER → 2023-10-07 10:12 | Outpatient (BNVA) | payer OTHER, SELFPAY | PROVIDERS: PCP Nurse Practitioner Family; Visit Provider Nurse Practitioner Family | DX: J06.9 Acute upper respiratory infection, unspecified (principal); U07.1 COVID-19 | CPT/HCPCS: 80053 ==